=== PATIENT | male | born 1995 | race Hispanic/Latino ===

== ENCOUNTER 2021-05-01 10:08 | Emergency (ER) | payer SELFPAY ==
[2021-05-01] MEDS ORDERED: DERMABOND SKIN ADHESIVE TOP ONE (10:34)
--- NOTE | 2021-05-01 11:10 | ER ---
Nurse's Notes [facility] Name: Mushtaq Ruiz Age: 25 yrs Sex: Male : 1995 Arrival Date: 05/01/2021 Time: 10:11 Bed 17 Private MD: Diagnosis: Laceration without foreign body of left index finger without damage to nail Presentation: 05/01 10:17 Chief complaint: Patient states: Accidentally cut tip of L hand 2nd digit with knife ll1 while cutting ham 30 min [employer]. Bleeding controlled with tape dressing. Coronavirus screen: Vaccine status: Patient reports being unvaccinated. Client denies travel out of the [place] in the last 14 days. At this time, the client does not indicate any symptoms associated with coronavirus-19. Ebola Screen: Patient denies travel to an Ebola-affected area in the 21 days before illness onset. Complicating Factors: There are no complicating factors for this patient. Initial Sepsis Screen: Does the patient meet any 2 criteria? No. Patient's initial sepsis screen is negative. Does the patient have a suspected source of infection? Yes: Skin breakdown/wound. Risk Assessment: Do you want to hurt yourself or someone else? Patient reports no desire to harm self or others. Onset of symptoms was May 01, 2021. 10:17 Method Of Arrival: Ambulatory ll1 10:17 Acuity: ANNE 4 ll1 Triage Assessment: 10:19 General: Appears in no apparent distress. Behavior is calm, cooperative, appropriate ll1 for age. Pain: Complains of pain in left hand Quality of pain is described as aching, Aggravated by increased activity. Neuro: No deficits noted. Cardiovascular: No deficits noted. Respiratory: No deficits noted. Derm: Skin is pink, warm \T\ dry. Musculoskeletal: Circulation, motion, and sensation intact. Capillary refill < 3 seconds, Range of motion: Tenderness present in left hand. Injury Description: Laceration sustained to left hand is 0.5 to 2.5 cm long, was sustained less than 30 minutes ago. is bleeding a small amount. Historical: - Allergies: 10:16 No Known Allergies; ll1 - PMHx: 10:16 None; ll1 - PSHx: 10:16 rectal SX; ll1 - Immunization history:: Client reports having NOT received the Covid vaccine. Last tetanus immunization: up to date < 5 years ago. - Social history:: Smoking status: Reported history of juuling and/or vaping. Patient/guardian denies using tobacco, the patient reports quitting approximately 1 years ago. Screenin:19 Abuse screen: Denies threats or abuse. Nutritional screening: No deficits noted. ll1 Tuberculosis screening: No symptoms or risk factors identified. Fall Risk Total Worthington Fall Scale indicates No Risk (0-24 pts). Assessment: 11:03 Reassessment: No changes from previously documented assessment. Patient and/or family ll1 updated on plan of care and expected duration. Pain level reassessed. Patient is alert, oriented x 3, equal unlabored respirations, skin warm/dry/pink. 11:21 Reassessment: No changes from previously documented assessment. Patient and/or family ll1 updated on plan of care and expected duration. Pain level reassessed. Patient is alert, oriented x 3, equal unlabored respirations, skin warm/dry/pink. Vital Signs: 10:17 BP 139 / 79; Pulse 74; Resp 17; Pulse Ox 100% ; Weight 102.06 kg; Height 5 ft. 6 in. ll1 (167.64 cm); Pain 3/10; 10:21 Temp 98.2(TE); ll1 10:17 Body Mass Index 36.32 (102.06 kg, 167.64 cm) ll1 ED Course: 10:11 Patient arrived in ED. as 10:12 José Miguel Gill NP is PHCP. pm1 10:12 Kip Guzman MD is Attending Physician. pm1 10:16 Luis Christina RN is Primary Nurse. ll1 10:16 Arm band placed on Patient placed in an exam room, on a stretcher. ll1 10:19 Triage completed. ll1 10:19 Patient has correct armband on for positive identification. Bed in low position. Call ll1 light in reach. Side rails up X 1. Pulse ox on. NIBP on. 10:40 Irrigation of laceration on left hand irrigated with normal saline Hibiclens solution ll1 Patient tolerated well. 11:18 Wound care: dressed wound with non-adherent gauze and Kerlix. 3 11:21 No provider procedures requiring assistance completed. Patient did not have IV access ll1 during this emergency room visit. Administered Medications: 10:16 Not Given (UTD): Tetanus-Diphtheria Toxoid Adult 0.5 ml IM once ll1 Outcome: 11:09 Discharge ordered by . pm1 11: Discharged to home ambulatory. ll1 11: Condition: stable 11:22 Discharge instructions given to patient, Instructed on discharge instructions, follow up and referral plans. medication usage, wound care, Demonstrated understanding of instructions, follow-up care, medications, wound care, Prescriptions given X 1. 11:22 Patient left the ED. ll1 Signatures: Luann Baum Patrick BRAND LEAD BRAND LEAD pm1 Nancie Mclaughlin 3 Luis Christina, RN RN ll1
--- NOTE | 2021-05-01 11:10 | EDPHYS ---
Physician Documentation [facility] Name: Mushtaq Ruiz Age: 25 yrs Sex: Male : 1995 Arrival Date: 05/01/2021 Time: 10:11 Bed 17 Private MD: ED Physician Kip Guzman HPI: 05/01 10:33 This 25 yrs old Male presents to ER via Ambulatory with complaints of pm1 Laceration - finger. 10:33 The patient or guardian reports a laceration, clean. The complaints affect the left pm1 index finger. Context: The problem was sustained at work, resulted from Cutting ham. Onset: The symptoms/episode began/occurred just prior to arrival. Modifying factors: The symptoms are alleviated by pressure to area. Associated signs and symptoms: The patient has no apparent associated signs or symptoms. The patient has not experienced similar symptoms in the past. The patient has not recently seen a physician. Patient was trying to cut into pieces of ham resulted in laceration to left index finger. Historical: - Allergies: 10:16 No Known Allergies; ll1 - PMHx: 10:16 None; ll1 - PSHx: 10:16 rectal SX; ll1 - Immunization history:: Client reports having NOT received the Covid vaccine. Last tetanus immunization: up to date < 5 years ago. - Social history:: Smoking status: Reported history of juuling and/or vaping. Patient/guardian denies using tobacco, the patient reports quitting approximately 1 years ago. ROS: 10:33 Constitutional: Negative for fever, chills, and weight loss, Cardiovascular: Negative pm1 for chest pain, palpitations, and edema, Respiratory: Negative for shortness of breath, cough, wheezing, and pleuritic chest pain. 10:33 Neuro: Negative for headache, weakness, numbness, tingling, and seizure. 10:33 Skin: Positive for laceration(s), of the left index finger. 10:33 All other systems are negative. Exam: 10:33 Constitutional: This is a well developed, well nourished patient who is awake, alert, pm1 and in no acute distress. Head/Face: Normocephalic, atraumatic. 10:33 Cardiovascular: Exam negative for acute changes, Rate: normal, Rhythm: regular, Pulses: no pulse deficits are appreciated. 10:33 Respiratory: Exam negative for acute changes, respiratory distress, shortness of breath. 10:33 Musculoskeletal/extremity: Extremities: grossly normal except: noted in the left index finger: laceration, ROM: intact in all extremities, Circulation is intact in all extremities. 10:33 Skin: Appearance: normal except for affected area, injury, laceration(s), the wound is approximately 1 cm(s), with a depth of 0.2 cm(s), of the palmar aspect of distal phalanx of left index finger, that can be described as clean, no foreign body, Skin flap. Vital Signs: 10:17 BP 139 / 79; Pulse 74; Resp 17; Pulse Ox 100% ; Weight 102.06 kg; Height 5 ft. 6 in. ll1 (167.64 cm); Pain 3/10; 10:21 Temp 98.2(TE); ll1 10:17 Body Mass Index 36.32 (102.06 kg, 167.64 cm) ll1 MDM: 10:15 Patient medically screened. pm1 11:05 Data reviewed: vital signs. Data interpreted: Pulse oximetry: on room air is 100 %. pm1 Interpretation: normal. 11:05 ED course: almost completely avulsed small skin flap present to left 2nd finger. Not pm1 able to suture. Option to either glue or remove skin flap completely. Patient prefers dermabond. 11:05 Counseling: I had a detailed discussion with the patient and/or guardian regarding: the pm1 historical points, exam findings, and any diagnostic results supporting the discharge/admit diagnosis, the need for outpatient follow up, to return to the emergency department if symptoms worsen or persist or if there are any questions or concerns that arise at home. 05/01 10:33 Order name: Dermabond; Complete Time: 11:02 pm1 Administered Medications: 10:16 Not Given (UTD): Tetanus-Diphtheria Toxoid Adult 0.5 ml IM once ll1 Disposition: 18:10 Co-signature as Attending Physician, Kip Guzman MD PA/[employer] SU[employer] SPECIALIST's history reviewed, ma2 patient interviewed, and examined. I agree with assessment and care plan and confirm the diagnosis (es) above. Disposition Summary: 05/01/21 11:09 Discharge Ordered Location: Home pm1 Problem: new pm1 Symptoms: have improved pm1 Condition: Stable pm1 Diagnosis - Laceration without foreign body of left index finger without damage to nail pm1 Followup: pm1 - With: Emergency Department - When: As needed - Reason: Worsening of condition Followup: pm1 - With: Private Physician - When: 2 - 3 days - Reason: Recheck today's complaints, Continuance of care, Re-evaluation by your physician Discharge Instructions: - Discharge Summary Sheet pm1 - Tissue Adhesive Wound Care pm1 Forms: - Medication Reconciliation Form pm1 - Thank You Letter pm1 - Antibiotic Education pm1 - Prescription Opioid Use pm1 - Work release form eb Prescriptions: - Cephalexin 500 mg Oral Capsule - take 1 capsule by ORAL route every 8 hours for 10 days; 30 capsule; Refills: 0, pm1 Product Selection Permitted Signatures: José Miguel Gill NP [employer] SUPPORT SPECIALIST pm1 Kip Guzman MD MD ma2 Luis Christina RN RN ll1
[2021-05-01 11:27] VITALS: BP 139/79; TEMP 98.2; O2SAT 100
== END 2021-05-01 11:22 | disposition home or self-care (01) ==
LOC: ER 10:08
DX: S61.213A Laceration without foreign body of left middle finger without damage to nail, initial encounter (principal); W26.0XXA Contact with knife, initial encounter; Y93.G9 Activity, other involving cooking and grilling
CPT/HCPCS: 99284